=== PATIENT | male | born 1995 | race Native Hawaiian/Other Pacific Islander ===

== ENCOUNTER 2019-07-15 18:38 | Inpatient (IN) | payer OTHER ==
[~2019-07-15] VITALS: Ht 180.3 cm; Wt 226.8 kg
[2019-07-15 18:49] VITALS: BP 120/88; TEMP 99.8
[2019-07-15 19:11] LABS: PLATELET COUNT 208 K/uL (142-355)
[2019-07-15 19:30] LABS: POTASSIUM 3.9 mmol/L (3.6-5.2)
[2019-07-16] VITALS: BP 135/78; TEMP 99.7
[2019-07-16 02:26] VITALS: BP 130/66; TEMP 99.7; Ht 180.3 cm; Wt 226.8 kg
[2019-07-16 04:00] VITALS: BP 153/75; TEMP 99.4
[2019-07-16 08:15] VITALS: BP 111/71; TEMP 99.8
[2019-07-16 20:00] VITALS: BP 124/65; TEMP 99
[2019-07-16 23:57] VITALS: BP 144/86; TEMP 100.3
[2019-07-17 04:00] VITALS: BP 137/70; TEMP 99
[2019-07-17 07:58] VITALS: BP 134/64; TEMP 99.2
[2019-07-17 10:09] LABS: PLATELET COUNT 213 K/uL (142-355)
[2019-07-17 10:22] LABS: POTASSIUM 4.1 mmol/L (3.6-5.2)
[2019-07-17 20:00] VITALS: BP 134/58; TEMP 97.8
[2019-07-17 23:58] VITALS: BP 135/66; TEMP 98.2
[2019-07-18 04:00] VITALS: BP 140/59; TEMP 98.1
[2019-07-18 08:00] VITALS: BP 138/72; TEMP 97.9
[2019-07-18 08:50] LABS: PLATELET COUNT 204 K/uL (142-355)
[2019-07-18 12:00] VITALS: BP 120/71; TEMP 98
== END 2019-07-18 14:25 | disposition home or self-care (01) | DRG 603 ==
LOC: ED 18:38 → MED/SURG 20:10
PROVIDERS: Family Medicine; ADMIT Emergency Medicine
DX: L03.115 Cellulitis of right lower limb (principal); E87.1 Hypo-osmolality and hyponatremia; E46 Unspecified protein-calorie malnutrition; I82.491 Acute embolism and thrombosis of other specified deep vein of right lower extremity; E66.01 Morbid (severe) obesity due to excess calories; E87.8 Other disorders of electrolyte and fluid balance, not elsewhere classified; E11.9 Type 2 diabetes mellitus without complications; D72.828 Other elevated white blood cell count; D53.9 Nutritional anemia, unspecified; Z72.0 Tobacco use; M79.7 Fibromyalgia
CPT/HCPCS: 36415; 80053; 81000; 82948; 83036; 83605; 83880; 85027; 85379; 87040; 96365; 96367; 96372; 99220; 99284; G0378; J0696; J1650; J1815; J3490

== ENCOUNTER 2020-11-23 20:29 | Emergency (ER) | payer OTHER ==
[~2020-11-23] VITALS: Ht 180.3 cm; Wt 224.1 kg
[2020-11-23 23:49] VITALS: BP 136/82; TEMP 98.2
== END 2020-11-24 00:45 ==
LOC: ED 20:52
DX: S39.012A Strain of muscle, fascia and tendon of lower back, initial encounter (principal); S86.811A Strain of other muscle(s) and tendon(s) at lower leg level, right leg, initial encounter; W01.198A Fall on same level from slipping, tripping and stumbling with subsequent striking against other object, initial encounter; Y92.149 Unspecified place in prison as the place of occurrence of the external cause
CPT/HCPCS: 96372; 99283; J1885

== ENCOUNTER 2022-03-22 20:13 | Emergency (ER) | payer OTHER ==
[~2022-03-22] VITALS: Ht 177.8 cm; Wt 223.6 kg
[2022-03-22] MEDS ORDERED: KETO10TA34 PO (20:49)
[2022-03-22] MEDS ORDERED: AMOX875T8 PO (20:49)
[2022-03-22 21:50] VITALS: BP 158/75; TEMP 99.9
== END 2022-03-22 21:50 | disposition home or self-care (01) ==
LOC: ED 20:13
DX: L03.211 Cellulitis of face (principal)
CPT/HCPCS: 96372; 99283; J0696; J1885